=== PATIENT | female | born 1945 | race Caucasian/White ===

== ENCOUNTER 2023-11-11 13:57 | Emergency (ER) | payer OTHER, SELFPAY ==
[2023-11-11] VITALS (7 sets, daily range): BP systolic 139–190; BP diastolic 66–82
[2023-11-11 14:33] LABS: % Basophils 0.5 % (0-2); % Eosinophils 2.7 % (0-6); % Immature Granulocytes 0.2 % (0-0.5); % Lymphocytes 25.5 % (20.5-51.1); % Monocytes 7.8 % (1.7-9.3); % Neutrophils 63.3 % (42.2-75.2); Absolute Eosinophils 0.2 10^3/uL (0-0.7); Absolute Lymphocytes 1.4 10^3/uL (1.2-3.4); Absolute Monocytes 0.4 10^3/uL (0.1-0.6); Absolute Neutrophils 3.5 10^3/uL (1.4-6.5); Hematocrit 35.5 % (37.0-47.0); Hemoglobin 12.1 g/dL (12.0-16.0); Mean Corp Hgb Conc. 34.1 g/dL (33.0-37.0); Mean Corpuscular Volume 88.1 fL (81.0-99.0); Nucleated Red Blood Cells % 0 %; Platelet Count 247 10^3/uL (130-400); Red Blood Cell Count 4.03 10^6/uL (4.20-5.40); Red Cell Dist. Width 13.1 % (11.5-14.5); White Blood Cell Count 5.5 10^3/uL (4.8-10.8)
[2023-11-11 14:50] LABS: ALT (SGPT) 32 U/L (0-35); AST (SGOT) 40 U/L (14-36); Albumin 4.4 g/dl (3.5-5.0); Alkaline Phosphatase 54 U/L (38-126); Blood Urea Nitrogen 21 mg/dl (7-17); Calcium 9.7 mg/dl (8.4-10.2); Carbon Dioxide 26 mmol/L (22-30); Chloride 102 mmol/L (98-107); Glucose 92 mg/dl (70-99); Potassium 4.1 mmol/L (3.5-5.1); Sodium 135 mmol/L (135-145); Total Bilirubin 1.1 mg/dl (0.2-1.3); Total Protein 7.2 g/dl (6.3-8.2); eGFR > 60.00
[2023-11-11 15:00] LABS: Troponin I < 0.012 ng/ml
[2023-11-11] MEDS: NORVASC 7.5 MG PO (19:17)
[2023-11-11 19:54] LABS: Troponin I < 0.012 ng/ml
--- NOTE | 2023-11-11 20:31 | ED.GENMED ---
History of Present Illness
General
Chief Complaint: Chest Pain
Source: patient and family
Exam Limitations: none
Time Seen by Provider: 11/11/23 17:27
Nursing documentation reviewed up to this point in time: agreed with
Travel History
Have you had any contact with someone who has COVID-19?: No
Do you have any symptoms of coronavirus? Fever > 100 degrees, chills, cough, shortness of breath, sore throat, loss of taste or smell, muscle aches, or headache?: No
History of Present Illness
History of Present Illness:
78-year-old female with past medical history of CAD hypertension COPD hypothyroidism anxiety depression presenting to the emergency department today with concerns of intermittent left-sided chest pressure over the past week or so took some
nitroglycerin at home and isosorbide but did not seem to change symptoms. Denies any exertional component associate nausea vomiting or diaphoresis. Does follow closely with cardiology.
Past History
Past History
ED Past Medical History: HTN and Other ('broken heart')
Social History
Tobacco: Non-smoker
Alcohol: None
Drug: None
Personal:
Living: alone
Employment: Other (Noncontributory)
Family History
Family History: Negative Diabetes
Review of Systems
Review of Systems
Allergies reviewed?: Yes
All Other Systems: ROS reviewed and negative except as documented in HPI and ROS
Phy Exam
Physical Exam
Physical Exam:
GENERAL: Alert , in no apparent distress
EYE: pupils equal and reactive
NECK: Supple, no significant adenopathy.
ENT: o/p clr, mmm.
CARDIAC: Regular rate and rhythm .
LUNGS: Clear breath sounds bilaterally, no acute respiratory distress, no wheezes/rales/rhonchi
ABDOMEN: Soft, without focal tenderness, no r/g, no cvat
NEUROLOGICAL: Alert and oriented, no focal neuro deficits
SKIN: Warm and dry, skin intact.
MUSCULOSKELETAL: No edema, well perfused.
PSYCH: Normal and appropriate interaction.
Scores
Heart Score for Chest Pain Patients
STEMI patient?: No
History: Slightly or Non-Suspicious
ECG: Normal
Age: >/= 65 years
Risk Factors: >/= 3 Risk Factors or History of CAD
Troponin: </= Normal Limit
Heart Score for Chest Pain Patients: 4
Heart Score Risk: 20.3% MACE over next 6 weeks
Course
Orders/Labs/Results
Orders:
Orders
11/11/23 14:10
Electrocardiogram (*1) Urgent
Reason for Study: Chest Pain
EKG- Treatment ONCE
11/11/23 14:17
Complete Blood Count/With Diff Urgent
Comprehensive Metabolic Panel Urgent
Troponin I Urgent
11/11/23 17:30
Chest [CR Chest - 2 Views ] Urgent
Comment:
Reason For Exam: cp
11/11/23 19:07
EKG [Electrocardiogram (*1)] Urgent
Reason for Study: Chest Pain
EKG- Treatment ONCE
Amlodipine [Norvasc] 7.5 mg PO ONCE ONE
11/11/23 19:22
Troponin I Urgent
Abnormal Lab Results
11/11/23
14:17
RBC 4.03 L 10^6/uL
(4.20-5.40)
Hct 35.5 L %
(37.0-47.0)
BUN 21 H mg/dl
(7-17)
AST 40 H U/L
(14-36)
11/11/23 14:17
11/11/23 14:17
Vital Signs
Initial and Last Documented VS:
Initial Vital Signs
Temp Pulse Resp BP Pulse Ox
98.5 F 72 18 150/77 99
11/11/23 14:07 11/11/23 14:07 11/11/23 14:07 11/11/23 14:07 11/11/23 14:07
Last Documented Vital Signs
Temp Pulse Resp BP Pulse Ox
98.5 F 58 23 146/67 98
11/11/23 14:07 11/11/23 20:20 11/11/23 20:20 11/11/23 20:20 11/11/23 20:20
MDM/Problems Addressed
MDM/Problems Addressed:
78-year-old female presenting to the emergency department today with concerns of intermittent chest discomfort over the past week or so had some yesterday some mild episode today. On arrival vital signs showing slightly blood pressure but otherwise
normal vital signs patient in no distress normal heart and lung exam labs unremarkable EKG normal troponin negative chest x-ray normal. Repeated troponin and EKG also normal likelihood of acute coronary syndrome is very low we will follow-up
closely with cardiology otherwise stable for outpatient management return precautions given.
*Critical Care Note
Total Time (30-74mins, 75-104mins- exclusive of procedures): Not Applicable
ED Attending Note
-
Portions of this chart may have been created with voice recognition software.� Occasional wrong word or��sound alike� substitutions may have occurred due to the inherent limitations of voice recognition software.
Discharge Plan
Departure
Patient Disposition: Home (Routine Discharge)
Date of Disposition: 11/11/23
Time of Disposition: 20:31
Patient with high blood pressure during this ER visit?: No
Condition: Good
Covid-19: Not Applicable
Discharge Problem:
Chest pain
Instructions: Chest Pain DCA Follow Up
Prescriptions:
No Action
atorvastatin 40 MG tablet
40 mg PO QPM Qty: 90 3RF
nitroglycerin 0.4 MG tablet, sublingual
0.4 mg sublingual [id number] PRN (Reason: chest pain ) Qty: 30 2RF
amlodipine 5 MG tablet
7.5 mg PO QPM
lorazepam 0.5 MG tablet
0.25 mg PO DAILY PRN (Reason: anxiety)
losartan 100 MG tablet
100 mg PO DAILY
escitalopram oxalate 10 MG tablet
10 mg PO DAILY
aspirin 81 MG tablet,delayed release (DR/EC)
81 mg PO HS
famotidine 40 MG tablet
40 mg PO BID
calcium carbonate 600 MG tablet
600 mg PO HS
conjugated estrogens [Premarin] 1 APPLIC cream
1 applic vaginal WEEKLY
brimonidine-timolol [Combigan] 1 DROP drops
1 drp ophthalmic (eye) BID
diclofenac sodium 100 GRAM/TUBE gel
100 g topical PRN PRN (Reason: knee pain)
levothyroxine 88 MCG tablet
88 mcg PO DAILY
albuterol sulfate [Albuterol Sulfate HFA] 18 GM HFA aerosol inhaler
1 puff inhalation PRN PRN (Reason: sob)
cholecalciferol (vitamin D3) 1,000 UNITS tablet
1,000 units PO DAILY
vitamins A,C,I-[id number]-hewjdz [PreserVision AREDS] 1 CAP capsule
1 cap PO BID
Referrals:
Macho Bhat, DO [Family Provider] -
Activity Restrictions/Additional Instructions:
You came to the emergency department today with concerns of chest pressure. Here you had a reassuring evaluation 2 negative troponin test and 2 normal EKGs as well as a normal chest x-ray. 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 Return to
the emergency department for any worsening, new or concerning symptoms.
Interventions
Interventions:
*Risk Screen - Suicide Last Done: 11/11/23 14:07
*General Assessment Last Done: 11/11/23 14:07
*Neglect/Abuse Screening Last Done: 11/11/23 14:07
*ED COVID-19 Vaccine History Last Done: 11/11/23 17:29
ED- Cardiac Assessment Last Done: 11/11/23 17:29
== END 2023-11-11 20:40 | disposition home or self-care (01) ==
LOC: EMR 13:57
PROVIDERS: Physician Assistant; EMERGENCY PHYSICIAN Emergency Medicine; FAMILY PHYSICIAN Family Medicine
DX: R07.9 Chest pain, unspecified (principal); I10 Essential (primary) hypertension
CPT/HCPCS: 99285; 71046; 80053; 84484; 85025; 93005

== ENCOUNTER → 2024-03-27 06:33 | Day surgery (SDC) | payer OTHER, SELFPAY | LOC: GI 06:33 | PROVIDERS: ATTENDING PHYSICIAN Internal Medicine | DX: R13.10 Dysphagia, unspecified (principal); K44.9 Diaphragmatic hernia without obstruction or gangrene; K31.7 Polyp of stomach and duodenum; K29.70 Gastritis, unspecified, without bleeding; K21.9 Gastro-esophageal reflux disease without esophagitis | CPT/HCPCS: 43239; 88305; 88342; 93005 ==

== ENCOUNTER → 2024-04-26 14:36 | Outpatient (REF) | payer OTHER, SELFPAY | LOC: RAD 14:36 | PROVIDERS: ATTENDING PHYSICIAN Nurse Practitioner Adult Health; FAMILY PHYSICIAN Family Medicine | DX: R06.02 Shortness of breath (principal) | CPT/HCPCS: 71250 ==

== ENCOUNTER → 2024-05-21 07:21 | Outpatient (REF) | payer OTHER, SELFPAY | LOC: RCS 07:21 | PROVIDERS: ATTENDING PHYSICIAN Internal Medicine Cardiovascular Disease; FAMILY PHYSICIAN Family Medicine | DX: R06.09 Other forms of dyspnea (principal); R07.9 Chest pain, unspecified; I51.81 Takotsubo syndrome; I10 Essential (primary) hypertension | CPT/HCPCS: 78452; 93017; A9500 ==

== ENCOUNTER → 2024-07-05 09:14 | Outpatient (REF) | payer OTHER, SELFPAY | LOC: WDC 09:14 | PROVIDERS: ATTENDING PHYSICIAN Obstetrics & Gynecology Gynecology; FAMILY PHYSICIAN Family Medicine | DX: N63.21 Unspecified lump in the left breast, upper outer quadrant (principal) | CPT/HCPCS: 76642; 77062; 77066 ==

== ENCOUNTER 2024-08-25 09:57 | Emergency (ER) | payer OTHER, SELFPAY ==
[2024-08-25 10:05] VITALS: BP 139/68
[2024-08-25 10:39] LABS: % Basophils 0.3 % (0-2); % Immature Granulocytes 0.2 % (0-0.5); % Lymphocytes 17.9 % (20.5-51.1); % Monocytes 5.2 % (1.7-9.3); % Neutrophils 75.4 % (42.2-75.2); Absolute Eosinophils 0.1 10^3/uL (0-0.7); Absolute Monocytes 0.3 10^3/uL (0.1-0.6); Absolute Neutrophils 4.4 10^3/uL (1.4-6.5); Hematocrit 36.7 % (37.0-47.0); Hemoglobin 12.1 g/dL (12.0-16.0); Mean Corpuscular Hgb 30.2 pg (27.0-31.0); Mean Corpuscular Volume 91.5 fL (81.0-99.0); Mean Platelet Volume 8.9 fL (7.4-10.4); Nucleated Red Blood Cells % 0 %; Platelet Count 266 10^3/uL (130-400); Red Blood Cell Count 4.01 10^6/uL (4.20-5.40); Red Cell Dist. Width 12.4 % (11.5-14.5); White Blood Cell Count 5.8 10^3/uL (4.8-10.8)
[2024-08-25 10:51] LABS: ALT (SGPT) 21 U/L (0-35); AST (SGOT) 30 U/L (14-36); Albumin 4.3 g/dl (3.5-5.0); Alkaline Phosphatase 36 U/L (38-126); Blood Urea Nitrogen 12 mg/dl (7-17); Calcium 8.8 mg/dl (8.4-10.2); Carbon Dioxide 25 mmol/L (22-30); Chloride 105 mmol/L (98-107); Glucose 143 mg/dl (70-99); Potassium 3.8 mmol/L (3.5-5.1); Sodium 139 mmol/L (135-145); Total Bilirubin 0.8 mg/dl (0.2-1.3); Total Protein 6.7 g/dl (6.3-8.2); eGFR > 60.00
[2024-08-25 11:02] LABS: Troponin I < 0.012 ng/ml
--- NOTE | 2024-08-25 11:39 | ED.GENMED ---
History of Present Illness
General
Chief Complaint: Chest Pain
Time Seen by Provider: 08/25/24 11:24
History of Present Illness
History of Present Illness:
78-year-old female presents to the emergency department for evaluation of left central chest pain that woke her up from sleep last night, has improved as of this morning but not fully resolved. Pain is pleuritic. No associated back pain or upper
extremity pain. She does note that she had a fall 1 week ago and landed on her chest. Denies dyspnea or hemoptysis. No leg swelling, recent prolonged travel/immobilization or recent surgeries. Did have a relatively unremarkable stress test in
May of this year. Last cardiac cath was 2020 showing mild CAD
Past History
Past History
ED Past Medical History: HTN and Other ('broken heart')
Social History
Tobacco: Non-smoker
Alcohol: None
Drug: None
Personal:
Living: alone
Employment: Other (Noncontributory)
Family History
Family History: Negative Diabetes
Review of Systems
Review of Systems
Allergies reviewed?: Yes
Phy Exam
Physical Exam
Physical Exam:
GEN: Well appearing, NAD, WDWN
HEENT: Oral mucosa moist, no scleral icterus
Cardiac: Regular rate and rhythm, no murmurs
Lung: No respiratory distress, no tachypnea, lungs clear to auscultation bilaterally
Chest: Reproducible pain to the left sternal costal joints, no palpable deformities, no crepitus
MSK: No gross deformity or injuries
Skin: Good color, no pallor or jaundice, no rashes
Neuro: AO x3, moves all extremities freely
Psych: Calm, cooperative
Scores
Heart Score for Chest Pain Patients
STEMI patient?: No
History: Slightly or Non-Suspicious
ECG: Normal
Age: >/= 65 years
Risk Factors: >/= 3 Risk Factors or History of CAD
Troponin: </= Normal Limit
Heart Score for Chest Pain Patients: 4
Heart Score Risk: 20.3% MACE over next 6 weeks
Course
Orders/Labs/Results
Orders:
Orders
08/25/24 09:58
ECG [Electrocardiogram (*1)] Urgent
Reason for Study: Chest Pain
EKG- Treatment ONCE
08/25/24 10:26
Complete Blood Count/With Diff Urgent
Comprehensive Metabolic Panel Urgent
Troponin I Urgent
08/25/24 11:39
CR Chest - 2 Views Urgent
Comment:
Reason For Exam: chest pain
Abnormal Lab Results
08/25/24
10:26
RBC 4.01 L 10^6/uL
(4.20-5.40)
Hct 36.7 L %
(37.0-47.0)
Absolute Lymphs (auto) 1.0 L 10^3/uL
(1.2-3.4)
Neutrophils % 75.4 H %
(42.2-75.2)
Lymphocytes % 17.9 L %
(20.5-51.1)
Glucose 143 H mg/dl
(70-99)
Alkaline Phosphatase 36 L U/L
(38-126)
08/25/24 10:26
08/25/24 10:26
Vital Signs
Initial and Last Documented VS:
Initial Vital Signs
Temp Pulse Resp BP Pulse Ox
98.3 F 68 16 139/68 100
08/25/24 10:05 08/25/24 10:05 08/25/24 10:05 08/25/24 10:05 08/25/24 10:05
Last Documented Vital Signs
Temp Pulse Resp BP Pulse Ox
98.3 F 56 16 118/88 99
08/25/24 10:05 08/25/24 13:09 08/25/24 13:09 08/25/24 13:09 08/25/24 13:09
MDM/Problems Addressed
MDM/Problems Addressed:
Patient's pain is reproducible on examination and she does note a recent fall. EKG is unremarkable and troponin is negative, the patient did have a reassuring stress test within the past several months. Do not feel this represents a coronary
syndrome. No PE risk factors. Discussed supportive care.
Comment
Comment:
EKG independently interpreted by me shows normal sinus rhythm at a rate of [address] depressions laterally that are comparable to prior EKG
*Critical Care Note
Total Time (30-74mins, 75-104mins- exclusive of procedures): Not Applicable
ED Attending Note
-
Portions of this chart may have been created with voice recognition software.� Occasional wrong word or��sound alike� substitutions may have occurred due to the inherent limitations of voice recognition software.
Discharge Plan
Departure
Patient Disposition: Home (Routine Discharge)
Date of Disposition: 08/25/24
Time of Disposition: 13:03
Patient with high blood pressure during this ER visit?: No
Discharge Problem:
Chest wall pain
Instructions: Costochondritis
Prescriptions:
No Action
atorvastatin 40 MG tablet
40 mg PO QPM Qty: 90 3RF
nitroglycerin 0.4 MG tablet, sublingual
0.4 mg sublingual [id number] PRN (Reason: chest pain ) Qty: 30 2RF
amlodipine 5 MG tablet
7.5 mg PO QPM
lorazepam 0.5 MG tablet
0.25 mg PO DAILY PRN (Reason: anxiety)
losartan 100 MG tablet
100 mg PO DAILY
escitalopram oxalate 10 MG tablet
10 mg PO DAILY
aspirin 81 MG tablet,delayed release (DR/EC)
81 mg PO HS
famotidine 40 MG tablet
40 mg PO BID
calcium carbonate 600 MG tablet
600 mg PO HS
conjugated estrogens [Premarin] 1 APPLIC cream
1 applic vaginal WEEKLY
brimonidine-timolol [Combigan] 1 DROP drops
1 drp ophthalmic (eye) BID
diclofenac sodium 100 GRAM/TUBE gel
100 g topical PRN PRN (Reason: knee pain)
levothyroxine 88 MCG tablet
88 mcg PO DAILY
albuterol sulfate [Albuterol Sulfate HFA] 18 GM HFA aerosol inhaler
1 puff inhalation PRN PRN (Reason: sob)
cholecalciferol (vitamin D3) 1,000 UNITS tablet
1,000 units PO DAILY
vitamins A,C,L-pktb-patvpe [PreserVision AREDS] 1 CAP capsule
1 cap PO BID
Referrals:
Loli Dunne DO [Family Provider] -
Activity Restrictions/Additional Instructions:
Take Tylenol as needed for pain
Try ice and/or lidocaine patches
Interventions
Interventions:
*Risk Screen - Suicide Last Done: 08/25/24 10:05
*General Assessment Last Done: 08/25/24 11:45
*Neglect/Abuse Screening Last Done: 08/25/24 10:05
ED- Fall Risk Assessment Last Done: 08/25/24 13:09
*ED COVID-19 Vaccine History Last Done: 08/25/24 11:45
*Nursing Disposition Last Done: 08/25/24 13:09
ED- Cardiac Assessment Last Done: 08/25/24 11:45
Discharge Date and Time
Discharge Date/Time: 08/25/24 13:17
Print Language: ESTONIAN
[2024-08-25 11:42] VITALS: BP 124/70
[2024-08-25 13:09] VITALS: BP 118/88
== END 2024-08-25 13:17 | disposition home or self-care (01) ==
LOC: EMR 09:57
PROVIDERS: EMERGENCY PHYSICIAN Student in an Organized Health Care Education/Training Program; FAMILY PHYSICIAN Family Medicine
DX: R07.89 Other chest pain (principal); I10 Essential (primary) hypertension; I25.10 Atherosclerotic heart disease of native coronary artery without angina pectoris
CPT/HCPCS: 99283; 71046; 80053; 84484; 85025; 93005

== ENCOUNTER → 2025-02-25 12:01 | Outpatient (REF) | payer OTHER, SELFPAY ==
[2025-02-25 14:27] LABS: Monotest Negative (Negative)
[2025-02-25 15:16] LABS: IgA 260 mg/dl (70-400)
[2025-02-27 14:18] LABS: tTG IgA Antibody 23.8 EU/ml (0-19); tTG IgG Antibody 8.6 EU/ml (0-19)
[2025-02-28 02:46] LABS: Copper, Serum 127.2 ug/dL (80.0-155.0)
== END ==
LOC: REG 12:01
PROVIDERS: ATTENDING PHYSICIAN Family Medicine
DX: R16.0 Hepatomegaly, not elsewhere classified (principal)
CPT/HCPCS: 36415; 82525; 82784; 83516; 86231; 86308

== ENCOUNTER 2025-04-20 11:33 | Emergency (ER) | payer OTHER, SELFPAY ==
[2025-04-20 11:36] VITALS: BMI 16.8
[2025-04-20 11:37] VITALS: BP 143/78
[2025-04-20 11:39] VITALS: BP 143/78
--- NOTE | 2025-04-20 11:51 | ED.GENMED ---
History of Present Illness
General
Chief Complaint: Chest Pain
Source: patient
Exam Limitations: none
Time Seen by Provider: 04/20/25 11:45
History of Present Illness
History of Present Illness:
See MDM
Past History
Past History
ED Past Medical History: CAD, HTN, Hypothyroidism and Other ('broken heart')
Social History
Tobacco: Non-smoker
Alcohol: None
Drug: None
Personal:
Living: alone
Employment: Other (Noncontributory)
Family History
Family History: Negative Diabetes
Phy Exam
Physical Exam
Physical Exam:
See MDM
Scores
Heart Score for Chest Pain Patients
STEMI patient?: No
History: Slightly or Non-Suspicious
ECG: Normal
Age: >/= 65 years
Risk Factors: 1 or 2 Risk Factors
Troponin: </= Normal Limit
Heart Score for Chest Pain Patients: 3
Heart Score Risk: 2.5% MACE over next 6 weeks
Course
Orders/Labs/Results
Orders:
Orders
04/20/25 11:35
Electrocardiogram (*1) Urgent
Reason for Study: Chest Pain
EKG- Treatment ONCE
04/20/25 11:45
CMP [Comprehensive Metabolic Panel] Urgent
Complete Blood Count/With Diff Urgent
Troponin I Urgent
04/20/25 11:51
CR Chest - 2 Views Urgent
Comment:
Reason For Exam: Chest pain
04/20/25 12:35
Mag Hydrox/Al Hydrox/Simeth [Maalox] 30 ml Phenobarb/Hyoscy/Atropine/Scop [] 10 ml Viscous Lidocaine 2% [Xylocaine Viscous Cup] 10 ml PO NOW
04/20/25 12:51
Mag Hydrox/Al Hydrox/Simeth [Maalox] 30 ml .ROUTE .STK-MED ONE
Phenobarb/Hyoscy/Atropine/Scop [] 10 ml .ROUTE .STK-MED ONE
Viscous Lidocaine 2% [Xylocaine Viscous Cup] 15 ml .ROUTE .STK-MED ONE
04/20/25 13:40
Troponin I Urgent
04/20/25 14:23
Levothyroxine [Synthroid] 75 mcg PO ONCE ONE
Abnormal Lab Results
04/20/25
11:45
RBC 3.50 L 10^6/uL
(4.20-5.40)
Hgb 10.8 L g/dL
(12.0-16.0)
Hct 32.2 L %
(37.0-47.0)
Absolute Lymphs (auto) 0.9 L 10^3/uL
(1.2-3.4)
Lymphocytes % 18.5 L %
(20.5-51.1)
Chloride 108 H mmol/L
(98-107)
Glucose 118 H mg/dl
(70-99)
Alkaline Phosphatase 29 L U/L
(38-126)
Total Protein 6.2 L g/dl
(6.3-8.2)
04/20/25 11:45
04/20/25 11:45
Vital Signs
Initial and Last Documented VS:
Initial Vital Signs
Temp Pulse Resp BP Pulse Ox
98.1 F 62 16 143/78 100
04/20/25 11:37 04/20/25 11:37 04/20/25 11:37 04/20/25 11:37 04/20/25 11:37
Last Documented Vital Signs
Temp Pulse Resp BP Pulse Ox
98.1 F 60 18 143/78 100
04/20/25 11:37 04/20/25 11:45 04/20/25 11:45 04/20/25 11:39 04/20/25 11:58
MDM/Problems Addressed
Differential Diagnosis Includes:
Note:
CHIEF COMPLAINT(S)
Chest pain.
HISTORY OF PRESENT ILLNESS
The patient is a 79-year-old female presenting with chest pain. The onset of pain occurred during the night, preventing her from sleeping. She describes lying down in bed when the pain began. In the morning, while at her sisters house, the pain
persisted and worsened, particularly while sitting at the table. The patient took a full aspirin and nitroglycerin, which provided some relief. Despite the medication, the patient decided to call for emergency medical services (EMS) due to ongoing
pain. The patients electrocardiogram (EKG) appears okay per the initial assessment, but cardiology consultation and blood work are planned. Since taking nitroglycerin, she reports a headache, consistent with a known side effect. I did offer more
nitroglycerin to help with her chest pain but she declined due to the headache side effect.
The patient states she was not exerting herself, and the pain did not worsen with physical activity. The pain was initially severe but has decreased in intensity after using nitroglycerin. She denies having any significant physical activity or
unusual events the previous day. The patient has not eaten breakfast and is reportedly hungry.
PHYSICAL EXAM
General: Alert, no acute distress.
Skin: Warm, dry.
Head: Normocephalic, atraumatic
Neck: Appears supple, trachea midline.
Eyes, Ears, Nose, Mouth, and Throat: Oral mucosa moist.
Cardiovascular: No signs of cyanosis. Regular rate and rhythm
Respiratory: Respirations are non-labored.
Abdomen: Non-distended
Musculoskeletal: No deformities. No leg edema
Neurological: No focal neurological deficit observed.
Psychiatric: Cooperative, appropriate mood and affect.
PLAN
1. Conduct blood tests to further evaluate the cardiac status.
2. Consult with the cardiology team to review the findings and determine the necessity of further interventions.
3. Monitor the patient�s pain level, and consider administering additional nitroglycerin if the chest pain intensifies, while balancing the risk of headaches.
4. Encourage the patient to inform the medical team if the chest pain returns or worsens.
DIFFERENTIAL DIAGNOSIS
The Differential Diagnosis includes, in no particular order and is not limited to:
1. Angina pectoris.
2. Myocardial infarction.
3. Gastroesophageal reflux disease.
4. Costochondritis.
5. Pulmonary embolism.
6. Aortic dissection.
7. Pleuritis.
8. Anxiety/panic attack.
9. Pericarditis.
10. Peptic ulcer disease.
My independent EKG interpretation is:
- Rhythm: Junctional rhythm
- Heart rate: 61 beats per minute
- [place]: Normal axis
- Notable intervals: All intervals within normal limits
- Abnormalities: No ST elevation myocardial infarction (STEMI) detected
SUMMARY OF ENCOUNTER
The patient is a 79-year-old female who presented to the emergency department with chest pain that began during the night, prevented her from sleeping, and worsened while sitting. The patient took aspirin and nitroglycerin, which provided some
relief. Despite the medication, due to ongoing pain, she called for EMS. Her EKG showed a junctional rhythm with no evidence of STEMI. Blood work was planned, and her initial troponin levels were negative. After reassessment and administration of a
GI cocktail, the patient reported feeling much better.
DISPOSITION
Discharge.
ASSESSMENT
While her chest pain was concerning for cardiac etiology, the negative troponin levels and improvement after the GI cocktail suggests a non-cardiac cause. Less likely acute coronary syndrome.
EMERGENCY TREATMENTS ADMINISTERED
Administration of a GI cocktail.
REASSESSMENT
On reassessment, following administration of the GI cocktail, the patient reported significant improvement in symptoms.
PLAN
1. Discharge the patient with instructions to follow up with cardiology.
2. Monitor on the cardiac callback tracker to ensure timely follow-up.
3. Patient education regarding returning to the emergency department if symptoms reoccur or worsen.
INDEPENDENT REVIEW OF LABS AND INTERPRETATION OF TESTS
My independent review of troponin is negative times two, suggesting less likelihood of an acute coronary syndrome.
PATIENT EDUCATION AND COUNSELING
The patient was advised regarding the signs and symptoms that require immediate medical attention and was informed of the importance of follow-up with cardiology.
FOLLOW-UP INSTRUCTIONS
The patient is placed on the cardiac callback tracker for follow-up with cardiology.
MEDICATION RECONCILIATION
Nitroglycerin (as previously taken by the patient).
MEDICAL DECISION MAKING
- Number and Complexity of Problems Addressed: Chronic conditions affecting care, differential diagnosis considered included angina pectoris, myocardial infarction, gastroesophageal reflux disease, costochondritis, pulmonary embolism, aortic
dissection, pleuritis, anxiety/panic attack, pericarditis, and peptic ulcer disease.
- Data:
Category 1
Lab tests ordered and reviewed include troponin, which was negative, helping to rule out acute coronary syndrome.
Category 2
My independent EKG interpretation indicated a junctional rhythm with normal heart rate and axis, with no ST elevation.
Category 3
Management was discussed with the cardiology team to ensure proper follow-up care for the patient.
-Risk:
Consideration of Admission/Observation: Escalation of care including admission/observation was considered given the complexity and risk of the patients presenting complaint, exam findings, and/or their underlying comorbidities. However, ultimately I
feel the patient is safe for outpatient management with close follow-up. Reasoning: Work-up reassuring, does not reveal any acute life/organ threatening processes, patients symptoms well controlled upon reevaluation, reexamination is reassuring,
vitals are stable, patient agreeable with discharge, reliable for follow-up.
DIAGNOSIS
- Chest Pain (R07.9)
- Dyspepsia (R10.13)
*Pulse Oximetry
SaO2: 100
Oxygen Mode of Delivery: Room air
Patient hypoxic: no
*Critical Care Note
Total Time (30-74mins, 75-104mins- exclusive of procedures): Not Applicable
ED Attending Note
-
Portions of this chart may have been created with voice recognition software.� Occasional wrong word or��sound alike� substitutions may have occurred due to the inherent limitations of voice recognition software.
Discharge Plan
Departure
Patient Disposition: Home (Routine Discharge)
Date of Disposition: 04/20/25
Time of Disposition: 14:26
Patient with high blood pressure during this ER visit?: No
Discharge Problem:
Chest pain
Instructions: Chest Pain DCA Follow Up
Prescriptions:
No Action
nitroglycerin 0.4 MG tablet, sublingual
0.4 mg sublingual [id number] PRN (Reason: chest pain ) Qty: 30 2RF
amlodipine 5 MG tablet
5 mg PO QPM
lorazepam 0.5 MG tablet
0.25 mg PO DAILY PRN (Reason: anxiety)
losartan 100 MG tablet
100 mg PO QPM
aspirin 81 MG tablet,delayed release (DR/EC)
81 mg PO DAILY
famotidine 40 MG tablet
40 mg PO BID
calcium carbonate 600 MG tablet
600 mg PO DAILY
PreserVision AREDS 1 CAP capsule
1 cap PO BID
donepezil 5 mg tablet
5 mg PO HS
brinzolamide 1 % drops,suspension
1 drp BOTH EYES BID
cyanocobalamin (vitamin B-12) 1,000 mcg Tablet
1,000 mcg PO DAILY
levothyroxine [Synthroid] 75 mcg tablet
75 mcg PO DAILY
isosorbide mononitrate 60 mg tablet extended release 24 hr
60 mg PO QPM
escitalopram oxalate 20 mg tablet
20 mg PO QPM
atorvastatin 40 MG tablet
40 mg PO DAILY
Referrals:
Loli Dunne DO [Family Provider, Family Practice]
Activity Restrictions/Additional Instructions:
Please return for any worsening symptoms.
You may return at any time if you have further concerns.
Please follow up with your doctor at the first available appointment, preferably this week.
You were placed on the cardiac callback tracker. Someone from their office should call you in the next few days. If you do not hear from them in the next few days, please give them a call.
Thank you for choosing [facility].
Interventions
Interventions:
*Risk Screen - Suicide Last Done: 04/20/25 11:37
*General Assessment Last Done: 04/20/25 11:37
*Neglect/Abuse Screening Last Done: 04/20/25 11:37
*ED- Fall Risk Assessment Last Done: 04/20/25 11:54
ED- Cardiac Assessment Last Done: 04/20/25 11:47
Discharge Date and Time
Print Language: KYRGYZ
[2025-04-20 11:57] LABS: Hematocrit 32.2 % (37.0-47.0); Hemoglobin 10.8 g/dL (12.0-16.0); Mean Corp Hgb Conc. 33.5 g/dL (33.0-37.0); Mean Corpuscular Volume 92.0 fL (81.0-99.0); Nucleated Red Blood Cells % 0 %; Platelet Count 185 10^3/uL (130-400); Red Cell Dist. Width 13.0 % (11.5-14.5)
[2025-04-20 12:09] LABS: ALT (SGPT) 20 U/L (0-35); AST (SGOT) 24 U/L (14-36); Albumin 4.1 g/dl (3.5-5.0); Alkaline Phosphatase 29 U/L (38-126); Blood Urea Nitrogen 16 mg/dl (7-17); Calcium 8.5 mg/dl (8.4-10.2); Carbon Dioxide 27 mmol/L (22-30); Chloride 108 mmol/L (98-107); Estimated Creatinine Clearance 45 ml/min; Glucose 118 mg/dl (70-99); Potassium 4.0 mmol/L (3.5-5.1); Sodium 139 mmol/L (135-145); Total Protein 6.2 g/dl (6.3-8.2); eGFR > 60.00
[2025-04-20 12:20] LABS: Troponin I < 0.012 ng/ml
[2025-04-20] MEDS: MAALOX 50 PO (12:53)
[2025-04-20 12:55] VITALS: BP 149/64
[2025-04-20 13:00] VITALS: BP 165/108
[2025-04-20 14:00] VITALS: BP 159/67
[2025-04-20 14:17] LABS: Troponin I < 0.012 ng/ml
[2025-04-20] MEDS: SYNTHROID 75 MCG PO (14:41)
== END 2025-04-20 14:52 | disposition home or self-care (01) ==
LOC: EMR 11:33
PROVIDERS: EMERGENCY PHYSICIAN Student in an Organized Health Care Education/Training Program; FAMILY PHYSICIAN Family Medicine
DX: R07.9 Chest pain, unspecified (principal); R10.13 Epigastric pain; E03.9 Hypothyroidism, unspecified; I10 Essential (primary) hypertension; I25.10 Atherosclerotic heart disease of native coronary artery without angina pectoris
CPT/HCPCS: 99285; 71046; 80053; 84484; 85025; 93005

== ENCOUNTER 2025-04-29 11:51 | Emergency (ER) | payer OTHER, SELFPAY ==
[2025-04-29 12:16] VITALS: BP 131/92
[2025-04-29 12:42] LABS: Hematocrit 33.2 % (37.0-47.0); Hemoglobin 11.6 g/dL (12.0-16.0); Mean Corp Hgb Conc. 34.9 g/dL (33.0-37.0); Mean Corpuscular Volume 88.8 fL (81.0-99.0); Nucleated Red Blood Cells % 0 %; Platelet Count 219 10^3/uL (130-400); Red Cell Dist. Width 12.5 % (11.5-14.5)
[2025-04-29 13:07] LABS: ALT (SGPT) 46 U/L (0-35); AST (SGOT) 42 U/L (14-36); Albumin 4.9 g/dl (3.5-5.0); Alkaline Phosphatase 38 U/L (38-126); Blood Urea Nitrogen 12 mg/dl (7-17); Calcium 9.3 mg/dl (8.4-10.2); Carbon Dioxide 22 mmol/L (22-30); Chloride 102 mmol/L (98-107); Glucose 126 mg/dl (70-99); Potassium 3.8 mmol/L (3.5-5.1); Sodium 133 mmol/L (135-145); Total Protein 7.3 g/dl (6.3-8.2); eGFR > 60.00
[2025-04-29 13:18] LABS: Troponin I < 0.012 ng/ml
[2025-04-29 15:15] VITALS: BP 184/82
[2025-04-29 17:56] VITALS: BMI 25.0
--- NOTE | 2025-04-29 17:58 | EDRN ---
Savanah WADE in room w/pt
[2025-04-29 18:50] VITALS: BP 192/110
[2025-04-29 19:00] VITALS: BP 181/77
--- NOTE | 2025-04-29 19:06 | ED.GENMED ---
History of Present Illness
General
Chief Complaint: Chest Pain
Time Seen by Provider: 04/29/25 17:44
History of Present Illness
History of Present Illness:
79-year-old female presents to the emergency department for evaluation of generalized abdominal pain. She arrives with her sister who informs me that she is currently developing dementia and is following with outpatient neurology. Swetha
apparently forgets to eat often and her sister is concerned that her lack of oral intake is contributing to her progressively worsening symptoms. The patient is a poor historian and is unable to give me an adequate detail of what may provoke or
palliate her pain. She has lost approximately 50 pounds in the last several months. No fevers or chills. She has been having intermittent chest pain as well, saw cardiology as an outpatient after recent ED visit and is ordered to obtain an
outpatient echocardiogram
Past History
Past History
ED Past Medical History: CAD, HTN, Hypothyroidism and Other ('broken heart')
Social History
Tobacco: Non-smoker
Alcohol: None
Drug: None
Personal:
Living: alone
Employment: Other (Noncontributory)
Family History
Family History: Negative Diabetes
Review of Systems
Review of Systems
Allergies reviewed?: Yes
All Other Systems: ROS reviewed and negative except as documented in HPI and ROS
Phy Exam
Physical Exam
Physical Exam:
GEN: Well appearing, NAD, WDWN
HEENT: Oral mucosa moist, no scleral icterus
Cardiac: Regular rate
Lung: No respiratory distress, no tachypnea
Abdomen: Soft, moderate right upper quadrant tenderness, no rigidity
MSK: No gross deformity or injuries
Skin: Good color, no pallor or jaundice, no rashes
Neuro: AO x3, moves all extremities freely
Psych: Calm, cooperative
Scores
Heart Score for Chest Pain Patients
STEMI patient?: No
History: Slightly or Non-Suspicious
ECG: Normal
Age: >/= 65 years
Risk Factors: >/= 3 Risk Factors or History of CAD
Troponin: </= Normal Limit
Heart Score for Chest Pain Patients: 4
Heart Score Risk: 20.3% MACE over next 6 weeks
Course
Orders/Labs/Results
Orders:
Orders
04/29/25 11:55
Electrocardiogram (*1) Urgent
Reason for Study: Chest Pain
EKG- Treatment ONCE
04/29/25 12:25
Complete Blood Count/With Diff Urgent
Comprehensive Metabolic Panel Urgent
Troponin I Urgent
04/29/25 18:04
US Abdomen Complete/Upper Urgent
Comment:
Reason For Exam: RUQ pain
04/29/25 19:14
0.9% Sodium Chloride 500 ml [Nss] 500 ml IV BOLUS
Abnormal Lab Results
04/29/25
12:25
RBC 3.74 L 10^6/uL
(4.20-5.40)
Hgb 11.6 L g/dL
(12.0-16.0)
Hct 33.2 L %
(37.0-47.0)
Absolute Lymphs (auto) 0.6 L 10^3/uL
(1.2-3.4)
Neutrophils % 85.8 H %
(42.2-75.2)
Lymphocytes % 10.1 L %
(20.5-51.1)
Sodium 133 L mmol/L
(135-145)
Glucose 126 H mg/dl
(70-99)
AST 42 H U/L
(14-36)
ALT 46 H U/L
(0-35)
04/29/25 12:25
04/29/25 12:25
Vital Signs
Initial and Last Documented VS:
Initial Vital Signs
Temp Pulse Resp BP Pulse Ox
98.1 F 66 18 131/92 100
04/29/25 12:16 04/29/25 12:16 04/29/25 12:16 04/29/25 12:16 04/29/25 12:16
Last Documented Vital Signs
Temp Pulse Resp BP Pulse Ox
98.1 F 63 18 184/82 98
04/29/25 12:16 04/29/25 15:15 04/29/25 12:16 04/29/25 15:15 04/29/25 19:08
MDM/Problems Addressed
MDM/Problems Addressed:
Patient's cardiac workup is unremarkable, she is following as an outpatient with cardiology and is ordered to obtain an outpatient echo. At this point her symptoms are quite widespread and vague. Rest of abdominal pain or ultrasound shows no clear
cause of this. She may have delayed gastrointestinal issues and is planning to follow-up within the next 1 to 2 months with GI. Overall she does appear thin and frail but labs are grossly unremarkable thus there is no need for admission due to
failure to thrive. Given IV fluids in the ED and encouraged her sister to set reminders for the patient to ingest food to minimize further progression of functional decline
*Pulse Oximetry
SaO2: 98
Oxygen Mode of Delivery: Room air
Patient hypoxic: no
*Critical Care Note
Total Time (30-74mins, 75-104mins- exclusive of procedures): Not Applicable
ED Attending Note
-
Portions of this chart may have been created with voice recognition software.� Occasional wrong word or��sound alike� substitutions may have occurred due to the inherent limitations of voice recognition software.
Discharge Plan
Departure
Patient Disposition: Home (Routine Discharge)
Date of Disposition: 04/29/25
Time of Disposition: 19:18
Patient with high blood pressure during this ER visit?: No
Discharge Problem:
Abdominal pain
Instructions: Acid Reflux and GERD in Adults (DC)
Prescriptions:
New
pantoprazole 40 mg tablet,delayed release (DR/EC)
40 mg PO DAILY Qty: 30 0RF
No Action
nitroglycerin 0.4 MG tablet, sublingual
0.4 mg sublingual [id number] PRN (Reason: chest pain ) Qty: 30 2RF
amlodipine 5 MG tablet
5 mg PO QPM
lorazepam 0.5 MG tablet
0.25 mg PO DAILY PRN (Reason: anxiety)
losartan 100 MG tablet
100 mg PO QPM
aspirin 81 MG tablet,delayed release (DR/EC)
81 mg PO DAILY
famotidine 40 MG tablet
40 mg PO BID
calcium carbonate 600 MG tablet
600 mg PO DAILY
PreserVision AREDS 1 CAP capsule
1 cap PO BID
donepezil 5 mg tablet
5 mg PO HS
brinzolamide 1 % drops,suspension
1 drp BOTH EYES BID
cyanocobalamin (vitamin B-12) 1,000 mcg Tablet
1,000 mcg PO DAILY
levothyroxine [Synthroid] 75 mcg tablet
75 mcg PO DAILY
isosorbide mononitrate 60 mg tablet extended release 24 hr
60 mg PO QPM
escitalopram oxalate 20 mg tablet
20 mg PO QPM
atorvastatin 40 MG tablet
40 mg PO DAILY
Referrals:
Loli Dunne DO [Family Provider, Family Practice]
Activity Restrictions/Additional Instructions:
Follow-up with gastroenterology and cardiology as we discussed
Interventions
Interventions:
*Risk Screen - Suicide Last Done: 04/29/25 12:16
*General Assessment Last Done: 04/29/25 17:57
*Neglect/Abuse Screening Last Done: 04/29/25 17:57
*ED- Fall Risk Assessment Last Done: 04/29/25 17:57
*ED COVID-19 Vaccine History Last Done: 04/29/25 17:57
Discharge Date and Time
Print Language: [id number]
[2025-04-29] MEDS: NSS 500 IV (19:40)
[2025-04-29 20:00] VITALS: BP 184/81
[2025-04-29 20:43] VITALS: BP 171/89
== END 2025-04-29 20:59 | disposition home or self-care (01) ==
LOC: EMR 11:51
PROVIDERS: Emergency Medicine; EMERGENCY PHYSICIAN Student in an Organized Health Care Education/Training Program; FAMILY PHYSICIAN Family Medicine
DX: R10.9 Unspecified abdominal pain (principal); I25.10 Atherosclerotic heart disease of native coronary artery without angina pectoris; I10 Essential (primary) hypertension; E03.9 Hypothyroidism, unspecified
CPT/HCPCS: 99284; 96360; 76700; 80053; 84484; 85025; 93005

== ENCOUNTER 2025-09-09 22:56 | Emergency (ER) | payer OTHER, SELFPAY ==
[2025-09-09 23:02] VITALS: BP 87/53
[2025-09-09 23:37] LABS: Hematocrit 32.1 % (37.0-47.0); Hemoglobin 11.0 g/dL (12.0-16.0); Mean Corp Hgb Conc. 34.3 g/dL (33.0-37.0); Mean Corpuscular Volume 90.4 fL (81.0-99.0); Nucleated Red Blood Cells % 0 %; Platelet Count 176 10^3/uL (130-400); Red Cell Dist. Width 13.4 % (11.5-14.5)
[2025-09-09 23:44] LABS: COVID-19 Antigen Negative (Negative)
[2025-09-10 00:04] LABS: ALT (SGPT) 39 U/L (0-35); AST (SGOT) 61 U/L (14-36); Albumin 4.3 g/dl (3.5-5.0); Alkaline Phosphatase 42 U/L (38-126); Blood Urea Nitrogen 30 mg/dl (7-17); Calcium 9.0 mg/dl (8.4-10.2); Carbon Dioxide 25 mmol/L (22-30); Chloride 99 mmol/L (98-107); Glucose 126 mg/dl (70-99); Potassium 4.0 mmol/L (3.5-5.1); Sodium 132 mmol/L (135-145); Total Protein 6.9 g/dl (6.3-8.2); eGFR 51.75
[2025-09-10 00:15] LABS: Troponin I < 0.012 ng/ml
[2025-09-10 01:57] VITALS: BP 121/75
--- NOTE | 2025-09-10 02:18 | ED.GENMED ---
History of Present Illness
General
Chief Complaint: Fainting Sensation
Source: patient
Exam Limitations: none
Time Seen by Provider: 09/10/25 01:42
History of Present Illness
History of Present Illness:
79-year-old female URI symptoms for 2 to 3 days. Other family members with similar symptoms. Was standing became lightheaded went unresponsive some mild twitching or mild seizure-like activity. Was laid to the ground. Seemed better but then had
a recurrent episode going to the couch. Complaining of some chest pain earlier today. No pleuritic pain no shortness of breath. Tolerating liquids at home.
Past History
Past History
ED Past Medical History: CAD, HTN, Hypothyroidism and Other ('broken heart')
Social History
Tobacco: Non-smoker
Alcohol: None
Drug: None
Personal:
Living: alone
Employment: Other (Noncontributory)
Family History
Family History: Negative Diabetes
Review of Systems
Review of Systems
All Other Systems: Not applicable
Constitutional: Denies fever
ABD/GI: Reports no symptoms
Phy Exam
Physical Exam
Physical Exam:
GENERAL: Alert and oriented in no apparent distress
EYE: Orbits normal.
NECK: Supple. No thyroid palpable
CARDIAC: Regular rate and rhythm without any obvious murmurs.
LUNGS: Clear breath sounds,normal
ABDOMEN: Soft, without focal tenderness or distention
NEUROLOGICAL: Alert and oriented , grossly non-focal
SKIN: Warm and dry, no rash or lesion, no discoloration, skin intact.
MUSCULOSKELETAL: No edema,no deformity.Good color
PSYCH: Normal and appropriate interaction.
Course
Orders/Labs/Results
Orders:
Orders
09/09/25 23:06
Electrocardiogram (*1) Urgent
Reason for Study: Other
Other Reason for Exam: Respiratory Distress
Cardiac Monitoring- Treatment ONCE
EKG- Treatment ONCE
IV Insert/Care/Rem.- Treatment PRN
O2 Therapy [RESP] Urgent
Titrate/Wean O2 to maintain O2 sat greater than (%): 93
Special Instructions: TO MAINTAIN CONTINUOUS O2 SATS >/= 93%
Pulse Ox/cont/shift [RESP] Urgent
Quantity: 1
Special Instructions: continuous pulse ox
09/09/25 23:27
COVID-19 Antigen Urgent
Source: Nasal Swab
Complete Blood Count/With Diff Urgent
Comprehensive Metabolic Panel Urgent
NT-proBNP Urgent
Troponin I Urgent
Influenza A+B Rapid Molecular Urgent
TABITHA Source: Nasal Swab
Specimen Description:
09/10/25 00:05
CR Chest - 2 Views Urgent
Reason For Exam: respiratory distress
09/10/25 02:06
0.9% Sodium Chloride 1000 ml [Nss] 1,000 ml IV BOLUS
Abnormal Lab Results
09/09/25
23:27
WBC 3.8 L 10^3/uL
(4.8-10.8)
RBC 3.55 L 10^6/uL
(4.20-5.40)
Hgb 11.0 L g/dL
(12.0-16.0)
Hct 32.1 L %
(37.0-47.0)
Absolute Lymphs (auto) 0.6 L 10^3/uL
(1.2-3.4)
Lymphocytes % 16.7 L %
(20.5-51.1)
Monocytes % 10.3 H %
(1.7-9.3)
Sodium 132 L mmol/L
(135-145)
BUN 30 H mg/dl
(7-17)
Creatinine 1.1 H mg/dL
(0.6-1.0)
Glucose 126 H mg/dl
(70-99)
AST 61 H U/L
(14-36)
ALT 39 H U/L
(0-35)
09/09/25 23:27
09/09/25 23:27
Vital Signs
Initial and Last Documented VS:
Initial Vital Signs
Temp Pulse Resp BP Pulse Ox
98.4 F 73 20 87/53 98
09/09/25 23:02 09/09/25 23:02 09/09/25 23:02 09/09/25 23:02 09/09/25 23:02
Last Documented Vital Signs
Temp Pulse Resp BP Pulse Ox
98.4 F 60 12 118/60 98
09/09/25 23:02 09/10/25 02:30 09/10/25 02:30 09/10/25 02:30 09/10/25 02:19
MDM/Problems Addressed
Differential Diagnosis Includes:
All consistent with vasovagal syncope dehydration and influenza. Medically stable. Cardiac testing stable. Highly doubt pulmonary emboli.
*Radiology
Radiology exam reviewed: preliminary read by ED provider (Negative chest x-ray)
*Pulse Oximetry
SaO2: 98
Oxygen Mode of Delivery: Room air
Patient hypoxic: no
*EKG
Interpreted by ED Provider?: Yes
Interpretation: abnormal
Comparison EKG: changes noted
Heart Rate: 58
Rate: bradycardiac
Rhythm: sinus
[place]: normal axis
Interval: normal interval
QRS Pattern: normal QRS
Ischemia: no ischemia
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
Rate: normal
Interpretation: normal
Heart Rate: 62
Rhythm: sinus
*Critical Care Note
Total Time (30-74mins, 75-104mins- exclusive of procedures): Not Applicable
Update Note
Update Note:
Patient has remained stable and nontoxic. All consistent with base vagal syncope/dehydration from the flu. Has had symptoms greater than 48 hours. See no benefit to Tamiflu.
ED Attending Note
-
Portions of this chart may have been created with voice recognition software.� Occasional wrong word or��sound alike� substitutions may have occurred due to the inherent limitations of voice recognition software.
Discharge Plan
Departure
Patient Disposition: Home (Routine Discharge)
Date of Disposition: 09/10/25
Time of Disposition: 03:12
Patient with high blood pressure during this ER visit?: No
Discharge Problem:
Influenza, Syncope/dehydration
Instructions: Syncope (Fainting) (DC), Dehydration in adults - ED (DC), Flu in adults - ED (DC)
Prescriptions:
No Action
nitroglycerin 0.4 MG tablet, sublingual
0.4 mg sublingual [id number] PRN (Reason: chest pain ) Qty: 30 2RF
amlodipine 5 MG tablet
5 mg PO QPM
lorazepam 0.5 MG tablet
0.25 mg PO DAILY PRN (Reason: anxiety)
losartan 100 MG tablet
100 mg PO QPM
aspirin 81 MG tablet,delayed release (DR/EC)
81 mg PO DAILY
famotidine 40 MG tablet
40 mg PO BID
calcium carbonate 600 MG tablet
600 mg PO DAILY
PreserVision AREDS 1 CAP capsule
1 cap PO BID
donepezil 5 mg tablet
5 mg PO HS
brinzolamide 1 % drops,suspension
1 drp BOTH EYES BID
cyanocobalamin (vitamin B-12) 1,000 mcg Tablet
1,000 mcg PO DAILY
levothyroxine [Synthroid] 75 mcg tablet
75 mcg PO DAILY
isosorbide mononitrate 60 mg tablet extended release 24 hr
60 mg PO QPM
escitalopram oxalate 20 mg tablet
20 mg PO QPM
atorvastatin 40 MG tablet
40 mg PO DAILY
pantoprazole 40 mg tablet,delayed release (DR/EC)
40 mg PO DAILY Qty: 30 0RF
Referrals:
Loli Dunne DO [Family Provider, Family Practice] - Follow up in 2-3 days
Interventions
Interventions:
*General Assessment Last Done: 09/09/25 23:02
*Neglect/Abuse Screening Last Done: 09/09/25 23:02
*ED COVID-19 Vaccine History Last Done: 09/09/25 23:02
*ED Influenza Vaccine History Last Done: 09/09/25 23:02
[facility] Fall Risk Assessment Tool Last Done: 09/10/25 02:22
*Risk Screen - Suicide (C-SSRS) Last Done: 09/09/25 23:02
ED- Cardiac Assessment Last Done: 09/10/25 01:55
ED- Neurological Assessment Last Done: 09/10/25 01:55
Discharge Date and Time
Print Language: [id number]
[2025-09-10] MEDS: NSS 1000 IV (02:19)
[2025-09-10 02:22] VITALS: BMI 17.4
[2025-09-10 02:30] VITALS: BP 118/60
== END 2025-09-10 03:23 | disposition home or self-care (01) ==
LOC: EMR 22:56
PROVIDERS: Emergency Medicine; EMERGENCY PHYSICIAN Emergency Medicine; FAMILY PHYSICIAN Family Medicine
DX: J10.1 Influenza due to other identified influenza virus with other respiratory manifestations (principal); Z11.52 Encounter for screening for COVID-19; R55 Syncope and collapse; E86.0 Dehydration
CPT/HCPCS: 99284; 71046; 80053; 83880; 84484; 85025; 87502; 87811; 93005